=== PATIENT | female | born 1960 | race Caucasian/White ===

== ENCOUNTER 2016-08-18 12:27 | Day surgery (SDC) | payer OTHER ==
[~2016-08-18] VITALS: Ht 152.4 cm; Wt 86.9 kg
[2016-08-18 14:04] VITALS: Ht 152.4 cm; Wt 86.9 kg
[2016-08-18] MEDS ORDERED: METF-382 PO (14:04)
[2016-08-18] MEDS ORDERED: GEMF600T60 PO (14:04)
[2016-08-18] MEDS ORDERED: SYN112 PO (14:04)
[2016-08-18] MEDS ORDERED: LORA10TA3 PO (14:04)
[2016-08-18] MEDS ORDERED: FENTAnyl 50 MCG/ML VIAL ONE (15:07)
[2016-08-18] MEDS ORDERED: MIDAZOLAM 1 MG/ML 2 ML INJ ONE ×2 (15:07→15:08)
[2016-08-18 15:34] VITALS: BP 125/66; PULSE 68; RESP 18
--- NOTE | 2016-08-18 16:23 | GILP ---
DATE OF PROCEDURE: 08/18/2016 NAME OF PROCEDURES: Colonoscopy and biopsy. SURGEON: Christina Montana MD PREOPERATIVE DIAGNOSES: 1. Screening colonoscopy. 2. Positive occult blood in stool. POSTOPERATIVE DIAGNOSES: 1. Colonoscopy all the way to the cecum. 2. Prominent sigmoid fold and biopsies were taken for histopathology. 3. Internal hemorrhoids. INDICATION FOR THE PROCEDURE: Ms. Lara Ball is a 56-year-old female patient who was noted to hav e positive occult blood in stool. She never had screening colonoscopy. The procedure and possible complications were well explained to the patient. She understood and con sented to the procedure. DESCRIPTION OF PROCEDURE: Under the influence of fentanyl and Versed, the colonoscope was carefully introduced in the rectum, and under direct vision, it was advanced all the way to the cecum. FINDINGS: The patient had a prominent fold in the sigmoid colon, and biopsies were taken for histop athology. She was noted to have internal hemorrhoids. No colon neoplasm was identified. She tolerated the procedure very well, and there was no complication from the procedure. At the end of the procedure, she was awake with stable vital signs, and she was discharged home to the care of her family. IMPRESSION: 1. Colonoscopy all the way to the cecum. 2. Prominent sigmoid fold and biopsies were taken for histopathology. 3. Internal hemorrhoids. PLAN: 1. Await histopathology report. 2. Next screening colonoscopy in 10 years. Dictated By: CHRISTINA RIDER/SAMUEL Conf#: [id number] DID#: [id number]
== END 2016-08-18 16:39 | disposition home or self-care (01) ==
LOC: GIL 12:27
PROVIDERS: ATTEND Internal Medicine Gastroenterology
DX: K92.1 Melena (principal); K64.8 Other hemorrhoids; E11.9 Type 2 diabetes mellitus without complications
CPT/HCPCS: 45380; 82962; 88305; J2250; J3010; Z7610